=== PATIENT | male | born 1960 | race Caucasian/White ===

== ENCOUNTER 2016-06-04 11:25 | Inpatient (IN) ==
[2016-06-04 11:56] LABS: URINE CULTURE NEEDED? NO; URINE MICRO REVIEW NEEDED? NO; URINE SOURCE CLEAN CATCH
[2016-06-04 12:03] LABS: BILIRUBIN URINE NEGATIVE (NEGATIVE); BLOOD URINE NEGATIVE (NEGATIVE); COLOR YELLOW; GLUCOSE URINE NEGATIVE (NEGATIVE); LEUKOCYTES URINE NEGATIVE (NEGATIVE); NITRITE URINE NEGATIVE (NEGATIVE); PH URINE 5.5; PROTEIN URINE NEGATIVE (NEGATIVE); SP GRAVITY URINE 1.021; TURBIDITY URINE CLEAR (CLEAR); UR EPITHELIAL CELLS <10 /HPF (<10); URINE BACTERIA NEGATIVE /HPF; URINE RBC <10 /HPF (<10); URINE WBC <10 /HPF (<10); UROBILINOGEN URINE 2 mg/dL (NORMAL)
[2016-06-04 14:19] LABS: BASO% 2.9 % (0.0-0.8); EOS# 0.41 X1000 (0.0-0.7); EOS% 3.9 % (0.0-10.0); HEMATOCRIT 37.2 % (42.0-52.0); HEMOGLOBIN 13.6 g/dL (14.0-18.0); IMM GRAN# 0.08 X1000 (0.0-0.04); IMM GRAN% 0.8 % (0.0-0.5); LYMPH# 3.11 X1000 (1.2-3.4); LYMPH% 29.6 % (20.5-51.1); MANUAL DIFF NEEDED? NO; MCH 30.5 PG (27-31); MCHC 36.6 g/dL (33-37); MCV 83.4 FL (81-99); MONO# 1.75 X1000 (0.11-0.59); MONO% 16.6 % (1.7-9.3); NEUT% 46.2 % (42.2-75.2); PLT 184 X1000 (130-400); RBC 4.46 XMIL (4.7-6.1)
[2016-06-04 14:50] LABS: AGAP 14; ALBUMIN 3.3 g/dL (3.5-5.0); ALKALINE PHOSPHATASE 132 U/L (32-122); BUN 19 mg/dL (8-22); CALCIUM 9.1 mg/dL (8.8-10.2); CHLORIDE 98 mmol/L (98-107); COSMO 270; GOT 29 U/L (10-34); GPT 29 U/L (10-44); POTASSIUM 4.7 mmol/L (3.5-5.1); RA TEST > 650 IU/mL (0-14); SODIUM 134 mmol/L (136-145); TCO2 22 mmol/L (25-35); TOTAL BILIRUBIN 0.86 mg/dL (0.20-1.00); TOTAL PROTEIN 7.1 g/dL (6.3-8.3)
[2016-06-04 15:35] LABS: URINE CULTURE NEEDED? NO; URINE MICRO REVIEW NEEDED? NO; URINE SOURCE CLEAN CATCH
--- NOTE | 2016-06-04 15:43 | PROVIDER DOCUMENTATION ---
This chart was entered by Adrian Harris Scribe, acting as scribe for Andrea Monreal MD. HPI-General Adult - General Chief Complaint: General Adult Stated Complaint: EXT PAIN Time Seen by Provider: 06/04/16 13:11 Source: patient Allergies/Adverse Reactions: Patient Allergies Allergy/AdvReac Type Severity Reaction Status Date / Time No Known Allergies Allergy Verified 06/04/16 12:58 Home Medications: Home Medication List Medication Instructions Recorded Confirmed Last Taken Type Albuterol Sulfate [Ventolin Hfa] 18 gm IH Q6H PRN PRN 09/15/15 06/04/16 History Fluticasone/Vilanterol [Breo 2 puff INH HS 12/18/15 06/04/16 06/03/16 20:00 History Ellipta 100-25 Mcg INH] - History of Present Illness -Gen Adult Nature of Presenting Problems: patient is a 55 yo M that presents to the ER with joint pain swelling and muscle aches, unknown start of symptoms. Denies fever/chills. shortness of breath. This am patient had some confusion per family and urinary retention and frequency. No abdominal pain, n/v/d. Location of Pain/Injury: reports: back, upper body, lower body Pain Radiation: reports: no radiation Quality of Pain: reports: aching, dull Timing: reports: still present, constant Context/Activities at Onset: reports: none Modifying Factors: improves with: nothing Associated Symptoms: reports: back/neck pain, genitourinary problems, joint pain , muscle aches, other (confusion). denies: cough, diarrhea, EENT symptoms, fever/chills, nausea, shortness of breath, vomiting Similar Symptoms Previously?: No Recently seen or treated by another doctor?: No Review of Systems - Adult - REVIEW OF SYSTEMS - ADULT Constitutional: denies: chills, fever Eyes: denies: decreased vision, blurred vision, double vision Ears, Nose, Mouth & Throat: denies: ear pain, sinus problem, throat pain, throat swelling Cardiovascular: denies: chest pain, palpitations, syncope Respiratory: denies: cough, shortness of breath, wheezing Gastrointestinal: denies: abdominal pain, nausea, vomiting Genitourinary: reports: frequency. denies: dysuria, hematuria Musculoskeletal: reports: back pain, joint pain, neck pain Integumentary: reports: no symptoms reported Neurological: reports: other (confusion). denies: dizziness/vertigo, headache/ migraines, loss of balance, syncope Psychiatric: reports: no symptoms reported Endocrine: reports: no symptoms reported Hematologic/Lymphatic: reports: no symptoms reported Allergic/Immunologic: reports: no symptoms reported All Other Systems: Reviewed and Negative Past History - Adult - PAST MEDICAL HISTORY-ADULT Review of Records: reports: Old Records Reviewed, Nursing Assessment Review, Medications Reviewed Respiratory: reports: COPD - PRIOR SURGERIES/PROCEDURES Surgical/Procedure History: reports: tonsillectomy, other (spleenectomy) - IMMUNIZATION STATUS Childhood Immunizations: See Nurse Assessment Flu Vaccine: See Nurse Assessment - FAMILY HISTORY Family History: other (lupus) - SOCIAL HISTORY Smoking: cigarettes, less than 1 pack/day Alcohol Use Frequency: every day Number of drinks per typical drinking period:: 3-4 drinks Living Situation: family Physical Exam-General - PHYSICAL EXAM-ADULT Initial Vital Signs Reviewed: Yes - CONSTITUTIONAL General Appearance: alert, no apparent distress - EYES Eyes: PERRL/EOMI, pink conjunctivae - HEAD, EARS, NOSE, MOUTH & THROAT HENMT: normocephalic/atraumatic, moist mucous membranes, normal ENT inspection - NECK Neck: full range of motion, normal inspection - RESPIRATORY Respiratory: lungs clear, normal breath sounds, no respiratory distress, no accessory muscle use - CARDIOVASCULAR Cardiovascular: regular rate, rhythm, no edema, no murmur - GASTROINTESTINAL (ABDOMEN) Abdominal Exam: normal bowel sounds, non tender, soft - MUSCULOSKELETAL Extremity: no calf tenderness, normal capillary refill, pelvis stable, swelling (to bilateral hands(knuckles)), tenderness (bilateral feet) - SKIN Integumentary: normal color, warm/dry - NEUROLOGIC Neurologic: grossly normal, no motor/sensory deficits - PSYCHIATRIC Psych/Mental Status: normal mood/affect, normal thought content, normal thought process, oriented x 3 Progress - PLAN OF CARE/RESULTS Progress/Plan/Lab Results: Vital Signs - 8 hr 06/04/16 11:30 06/04/16 13:24 Temperature 97.3 F L Pulse Rate 96 H 84 Respiratory Rate 18 21 Blood Pressure 126/65 109/72 O2 Sat by Pulse Oximetry 99 94 L Laboratory Results - last 24 hr 06/04/16 11:45 Urine Source CLEAN CATCH Urine Color YELLOW Urine Turbidity CLEAR Urine pH 5.5 Ur Specific [place] 1.021 Urine Protein NEGATIVE Ur Glucose (Stick) NEGATIVE Ur Ketones (Stick) 20 A Urine Blood NEGATIVE Urine Nitrite NEGATIVE Urine Bilirubin NEGATIVE Urobilinogen Dipstick 2 A Urine Leukocytes NEGATIVE Urine WBC (Auto) <10 Urine RBC (Auto) <10 U Epithel Cells (Auto) <10 Urine Bacteria (Auto) NEGATIVE Orders Category Date Time Status CBC WITH ELECTRONIC DIFF [HEME] Stat Lab 06/04/16 12:44 Uncollected CMP [COMPREHENSIVE METABOLIC PANEL] [CHEM] Stat Lab 06/04/16 12:44 Uncollected UA NIMS W/REFLEX CULT [URINALYSIS] Stat Lab 06/04/16 11:45 Completed Orders Category Date Time Status HEAD W/O CONTRAST [CT] Stat Exams 06/04/16 13:31 Taken MRI BRAIN W/CONTRAST [MRI] Stat Exams 06/04/16 15:38 Ordered WALTER W/REFLEX [HH] Stat Lab 06/04/16 13:57 Received CBC WITH ELECTRONIC DIFF [HEME] Stat Lab 06/04/16 13:57 Completed CMP [COMPREHENSIVE METABOLIC PANEL] [CHEM] Stat Lab 06/04/16 13:57 Completed LUPUS INHIBITOR [HH] Stat Lab 06/04/16 13:57 Received RA TEST [CHEM] Stat Lab 06/04/16 13:57 Completed UA NIMS W/REFLEX CULT [URINALYSIS] Stat Lab 06/04/16 11:45 Completed UA NIMS W/REFLEX CULT [URINALYSIS] Stat Lab 06/04/16 14:10 Results Vital Signs Temp Pulse Resp BP Pulse Ox 06/04/16 13:24 84 21 109/72 94 L 06/04/16 11:30 97.3 F L 96 H 18 126/65 99 No Known Allergies Allergy (Verified 06/04/16 12:58) Albuterol Sulfate [Ventolin Hfa] 18 gm IH Q6H PRN PRN 09/15/15 Fluticasone/Vilanterol [Breo Ellipta 100-25 Mcg INH] 2 puff INH HS 12/18/15 I&O 06/03/16 06/04/16 06/05/16 06:59 06:59 06:59 Output Total Balance - Laboratory 06/04/16 06/04/16 06/04/16 14:10 13:57 13:57 WBC 10.52 RBC 4.46 L Hgb 13.6 L Hct 37.2 L MCV 83.4 MCH 30.5 MCHC 36.6 RDW Std Deviation 20.4 H Plt Count 184 MPV Not Reportable Immature Gran % (Auto) 0.8 H Neut % (Auto) 46.2 Lymph % (Auto) 29.6 [place] % (Auto) 16.6 H Eos % (Auto) 3.9 Baso % (Auto) 2.9 H Immature Gran # (Auto) 0.08 H Neut # (Auto) 4.86 Lymph # (Auto) 3.11 [place] # (Auto) 1.75 H Eos # (Auto) 0.41 Baso # (Auto) 0.31 H Sodium 134 L Potassium 4.7 Chloride 98 Carbon Dioxide 22 L Anion Gap 14 BUN 19 Creatinine 0.7 Estimated GFR/1.73 m2 > 60 BUN/Creatinine Ratio 27 Glucose 87 Calculated Osmolality 270 Calcium 9.1 Total Bilirubin 0.86 AST 29 ALT 29 Alkaline Phosphatase 132 H Total Protein 7.1 Albumin 3.3 L Globulin 3.8 Albumin/Globulin Ratio 0.9 Urine Source CLEAN CATCH Urine Color Urine Turbidity Urine pH Ur Specific [place] Urine Protein Ur Glucose (Stick) Ur Ketones (Stick) Urine Blood Urine Nitrite Urine Bilirubin Urobilinogen Dipstick Urine Leukocytes Urine WBC (Auto) Urine RBC (Auto) U Epithel Cells (Auto) Urine Bacteria (Auto) Rheum Factor Semi-Quant > 650 H 06/04/16 11:45 WBC RBC Hgb Hct MCV MCH MCHC RDW Std Deviation Plt Count MPV Immature Gran % (Auto) Neut % (Auto) Lymph % (Auto) [place] % (Auto) Eos % (Auto) Baso % (Auto) Immature Gran # (Auto) Neut # (Auto) Lymph # (Auto) [place] # (Auto) Eos # (Auto) Baso # (Auto) Sodium Potassium Chloride Carbon Dioxide Anion Gap BUN Creatinine Estimated GFR/1.73 m2 BUN/Creatinine Ratio Glucose Calculated Osmolality Calcium Total Bilirubin AST ALT Alkaline Phosphatase Total Protein Albumin Globulin Albumin/Globulin Ratio Urine Source CLEAN CATCH Urine Color YELLOW Urine Turbidity CLEAR Urine pH 5.5 Ur Specific [place] 1.021 Urine Protein NEGATIVE Ur Glucose (Stick) NEGATIVE Ur Ketones (Stick) 20 A Urine Blood NEGATIVE Urine Nitrite NEGATIVE Urine Bilirubin NEGATIVE Urobilinogen Dipstick 2 A Urine Leukocytes NEGATIVE Urine WBC (Auto) <10 Urine RBC (Auto) <10 U Epithel Cells (Auto) <10 Urine Bacteria (Auto) NEGATIVE Rheum Factor Semi-Quant Result Diagrams: 06/04/16 13:57 06/04/16 13:57 - CT/MRI 1 CT Study: Head Impression: Abnormal CT Results: many hypodense areas, spoke with - CONSULTS/PCP/HOSPITALIST Notification #1 *Consult/PCP/Hospitalist*: Time Discussed: 15:36 Consult Disposition: Will see in ED, Admit Departure - Departure Time of Disposition Decision: 15:37 DIAGNOSIS: Rheumatoid arthritis Qualifiers: Rheumatoid arthritis location: multiple sites Rheumatoid factor presence: without rheumatoid factor Qualified Code(s): M06.09 - Rheumatoid arthritis without rheumatoid factor, multiple sites Altered mental status Qualifiers: Altered mental status type: unspecified Qualified Code(s): R41.82 - Altered mental status, unspecified Disposition: ADMITTED INPATIENT 09 Certified Medical Emergency: Emergent Condition: Stable Referrals and Follow-Ups: None,PCP [Primary Care Provider] - This chart was documented by the indicated scribe, (Adrian Harris, Scribe) and accurately reflects the services I performed and decisions made by me, Andrea Monreal MD, as attested by the provider's signature.
[2016-06-04 15:45] LABS: BILIRUBIN URINE NEGATIVE (NEGATIVE); BLOOD URINE NEGATIVE (NEGATIVE); COLOR YELLOW; GLUCOSE URINE NEGATIVE (NEGATIVE); LEUKOCYTES URINE NEGATIVE (NEGATIVE); NITRITE URINE NEGATIVE (NEGATIVE); PH URINE 5.5; PROTEIN URINE NEGATIVE (NEGATIVE); SP GRAVITY URINE 1.023; TURBIDITY URINE CLEAR (CLEAR); UROBILINOGEN URINE 2 mg/dL (NORMAL)
[2016-06-04 15:48] LABS: UR EPITHELIAL CELLS <10 /HPF (<10); URINE BACTERIA NEGATIVE /HPF; URINE WBC <10 /HPF (<10)
--- NOTE | 2016-06-04 16:52 | Diag Imaging Result Document ---
PROCEDURE NAME: MRI BRAIN W W/O CONTRAST - 06/04/2016 MRI BRAIN WITH AND WITHOUT: TECHNIQUE: Axial, sagittal, and coronal images were obtained in multiple sequences. These were followed by postcontrast axial and coronal images. COMPARISON: Comparison is made to a recent CT. FINDINGS: There are multiple scattered areas of increased signal on the diffusion weighted images. However, these are much smaller than the areas of abnormal signal on the T2 and FLAIR weighted images. There are multiple bilateral asymmetric areas of increased signal on the FLAIR and T2 weighted images. No enhancing lesion on the postcontrast images. No distinct mass. No hydrocephalus. No epidural or subdural fluid collection. There is mucous in the frontal ethmoid, sphenoid, and maxillary sinuses. IMPRESSION: Bilateral multifocal areas of abnormal signal suspicious for diffuse disseminated encephalomyelitis although emboli could give a somewhat similar appearance. A preliminary report was given at 4:38 p.m..
--- NOTE | 2016-06-04 17:10 | Diag Imaging Result Document ---
PROCEDURE NAME: HEAD W/O CONTRAST - 06/04/2016 CT BRAIN WITHOUT: FINDINGS: Dose reduction protocol. No parenchymal hemorrhage. No epidural or subdural hematoma. No subarachnoid hemorrhage. Multifocal hypodense areas. No midline shift. No hydrocephalus. There is moderate to prominent mucous in the frontal, ethmoid, and sphenoid sinuses. IMPRESSION: 1. No hemorrhage. 2. Multifocal hypodense areas. There could be underlying masses. Additional imaging recommended. 3. Sinusitis. A preliminary report was called to Dr. Monreal in the emergency room at 3:16 PM.
[2016-06-04] MEDS ORDERED: VENTOLIN HFA INH PRN (17:53)
[2016-06-04] MEDS ORDERED: NS 1,000 ML IV ONE (17:53)
[2016-06-04] MEDS ORDERED: TYLENOL PO PRN (23:17)
[2016-06-04] MEDS ORDERED: ZOFRAN IV PRN (23:17)
[2016-06-04] MEDS ORDERED: SOLU-MEDROL IV ONE (23:28)
--- NOTE | 2016-06-05 03:27 | HISTORY AND PHYSICAL ---
CHIEF COMPLAINT: Confusion. HISTORY OF PRESENT ILLNESS: This is a 55-year-old, white male with a history of COPD who presents with intermittent episodes of confusion for the last 3-4 days. His also states he has had significant pain and swelling in his multiple joints, hands, left shoulder for the last 2-3 weeks. He has had some urinary retention and frequency. Denies abdominal pain. No nausea, vomiting, or diarrhea. The swelling in his joints, at least his hand joints, has been going on for about two years. He does not really state he has morning stiffness but he has weakness and stiffness in the last several days. Patient was evaluated in the ER, felt to have rheumatoid arthritis, and was admitted for further evaluation. A CT of the head had multiple abnormalities. MRI showed multiple areas of hypodensity which may be stroke, embolic, of unknown age versus encephalomeningitis. The patient also admitted for further workup. PAST MEDICAL HISTORY: COPD, otherwise negative. PAST SURGICAL HISTORY: Negative. FAMILY HISTORY: Reviewed. Mother had lupus. SOCIAL HISTORY: Half a pack a day. No ethanol. ALLERGIES: No known drug allergies. MEDICATIONS: Albuterol. REVIEW OF SYSTEMS: All systems are reviewed and negative. He does report weight loss, although less than 5-10 pounds. PHYSICAL EXAMINATION: VITAL SIGNS: Blood pressure is 115/66, heart rate 86, respiratory rate 18, temperature 98 degrees. GENERAL: Well-developed male, in no acute distress. HEAD EXAMINATION: Normocephalic, atraumatic. EYES: Pupils equal, round, reactive to light. Extraocular movements were intact. EARS/NOSE/THROAT: Moist mucous membranes. NECK: Supple. No thyromegaly. PULMONARY: Bilateral breath sounds clear to auscultation. No wheezing. GI: Soft, nontender, nondistended. Bowel sounds are positive. EXTREMITIES: No clubbing or cyanosis. No lymphadenopathic edema. NEUROLOGIC: Examination was nonfocal. Cranial nerves 2-12 were intact. MUSCULOSKELETAL: There was 4/5 on all 4 extremities. He had some pain in his left arm which limited his pronator examination. LABORATORY DATA: Unremarkable except for rheumatoid factor test of greater than 650. His head CT showed multiple areas of encephalomeningitis. PROBLEM LIST: 1. Rheumatoid arthritis. We will dose with steroids and follow. We will continue with other treatments and follow clinically. 2. Abnormal head CT, MRI. Questionable lesions could be a chronic inflammatory condition versus true ischemic disease. We will work up cerebrovascular disease with echocardiogram and carotid Doppler. I am going to get neurology consultation. We will continue to follow clinically. There is a concern over vasculitis. Follow clinically. 3. Chronic obstructive pulmonary disease appears to be complicated. We will continue to follow clinically. cc: Luis Enrique Caldwell MD
[2016-06-05 07:07] LABS: HEMATOCRIT 38.8 % (42.0-52.0); HEMOGLOBIN 13.9 g/dL (14.0-18.0); MCH 30.6 PG (27-31); MCHC 35.8 g/dL (33-37); MCV 85.5 FL (81-99); PLT 142 X1000 (130-400); RBC 4.54 XMIL (4.7-6.1)
--- NOTE | 2016-06-05 07:56 | Diag Imaging Result Document ---
PROCEDURE NAME: CT THORAX W/CONTRAST - 06/05/2016 CT OF THE CHEST WITH INTRAVENOUS CONTRAST: FINDINGS: There is apical pleural fibrosis bilaterally. There are some calcified and noncalcified pulmonary nodules in the upper lobes. There is mild emphysematous change. There is a pleural-based nodule in the right middle lobe which is fairly dense having a CT density of over 70 Hounsfield units. This is probably granulomatous. There are 2 pleural-based nodules in the right lower lobe on image 115 which are fairly dense as well without grossly evident calcification. The larger of the 2 has a diameter of [address] density of over 86 Hounsfield units. On image 113 in the left lower lobe, there is a pleural based nodule measuring almost 10 mm in diameter which is also fairly dense over 76 Hounsfield units. Multiple smaller peripheral nodules are present in both lower lobes which are too small to characterize. There is some fibrosis or atelectasis present in the right costophrenic sulcus posteriorly. Compared to the previous study of 09/15/2015, the pulmonary nodules and right lower lobe fibrotic changes have not changed significantly. 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 There are splenules in the left upper quadrant, the larger of which on image 119 is larger than it was on 09/15/2015. There is questionable thickening of the distal esophagus. There are stable mediastinal and hilar nodes. There are fairly prominent bilateral axillary nodes, one on the right measuring 17 mm in diameter and one on the left measuring 15 mm, both of which have not changed significantly in size since the previous study. The regional skeleton is stable in appearance. The aorta is without evidence of dissection. There is no evidence of aneurysm. There are some coronary calcifications in the left anterior descending and circumflex arteries. IMPRESSION: No evidence of acute pulmonary disease. Apparent granulomatous changes.
[2016-06-05 09:48] LABS: AGAP 15; ALBUMIN 3.3 g/dL (3.5-5.0); ALKALINE PHOSPHATASE 142 U/L (32-122); BUN 14 mg/dL (8-22); CALCIUM 9.3 mg/dL (8.8-10.2); CHLORIDE 99 mmol/L (98-107); COSMO 277; GOT 25 U/L (10-34); GPT 30 U/L (10-44); POTASSIUM 4.4 mmol/L (3.5-5.1); SODIUM 137 mmol/L (136-145); TCO2 23 mmol/L (25-35); TOTAL BILIRUBIN 0.75 mg/dL (0.20-1.00); TOTAL PROTEIN 7.2 g/dL (6.3-8.3)
[2016-06-05] MEDS ORDERED: SUDAFED PO PRN (11:22)
[2016-06-05] MEDS: CLARITIN PO SCH (11:42)
--- NOTE | 2016-06-05 14:47 | PROGRESS NOTE ---
DATE: 06/05/2016 SUBJECTIVE: The patient has no focal complaints. He looks much more awake and alert today. No major issues. He is still fairly weak, but we are going to see how he does kind of getting up and around. OBJECTIVE: Vital Signs: Blood pressure 111/61, heart rate 92, respiratory rate 18, temperature 97.9 degrees, 97% on room air. Cardiovascular: Regular rate and rhythm. Pulmonary: Bilateral breath sounds. Clear to auscultation. Gastrointestinal: Soft, nontender, nondistended. Bowel sounds are positive. Neurologic: Unremarkable, except for weakness in his left arm. PROBLEM LIST: 1. Likely rheumatoid arthritis. I am going to continue prednisone and we will put him on some anti-inflammatory medication and follow. He may, indeed, need methotrexate. I am still waiting on the rest of his laboratory work. Echocardiogram and carotid are still pending. 2. 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 I am going to wait on neural recommendations. We will continue to follow. Clinically, he looks well. Anticipate discharge soon, either later today or tomorrow. cc: Luis Enrique Caldwell MD
--- NOTE | 2016-06-05 14:55 | CONSULTATION ---
DATE OF CONSULTATION: 06/05/2016 Mr. Perkins is 55 years old and he has had recent mental changes with MRI evidence of multifocal bilateral small diffusion-weighted signals raising question of encephalitis. Other lab work included CBC showing anemia. Sodium 134. RF factor is very strongly positive. Noncontrast CT of the head showed multifocal hypodense areas. Systolic blood pressures have been 100 to 170s. He has been afebrile. History from patient and is that he has not felt well for the last few weeks. He was in the hospital twice in the last 6 or 8 months with COPD exacerbation but there was no confusion or mental change then. He had some shortness of breath, weight loss, malaise. noticed that he had trouble finding words at times as long as a week and a half ago. She noticed that he would sometimes pause in the middle of a sentence and not complete his sentence. Sometimes he would communicate very well and sometimes he had great difficulty. She did not recognize definite altered awareness. There was no altered consciousness or collapse. He noticed some numbness in the left foot in the last several days. Otherwise, there has not been any focal neurologic feature to his recent problems. He uses ethanol regularly, 1 or 2 beers most days recently, more than that in previous months. He denies illicit drug use. He takes his breathing medicines regularly. He does not have any other home medicines. He continues to smoke cigarettes. On exam, Mr. Perkins is awake, alert, attentive, appropriate. He is oriented to everything except the correct day of the month. He was able to discuss recent news with accurate detail. Speech is not dysarthric. He had some trouble naming parts of objects and he had trouble maintaining his attention with complicated commands. He scored 26/30 on bedside mini-mental status exam. He consistently registered 2 of 3 items but never registered 3 of 3. He then could recall 2 of 3 items but often a different 2 than what he had initially registered. He could not identify the correct day of the month. He had some trouble with naming parts of objects. He was completely oriented otherwise. He spelled world backward correctly on the 3rd try. He seemed to be distracted and had trouble maintaining attention. Head and neck are unremarkable. Visual marie are full tested grossly by confrontational finger counting. Extraocular movements are full. Facial motility is symmetric. Facial sensation is intact. Gag is intact. Tongue is midline. He can hear. Shoulder shrug is equal. Strength is normal in the arms and legs. He did well on [id number] testing bilaterally. He reports diminished pinprick appreciation over the dorsum of the left foot, mostly medial aspect without sharp margins. He had better proprioception at the right great toe MTP joint than on the left. He has good pinprick appreciation over the hands bilaterally and good proprioception in the fingers bilaterally. I did not test his gait. Reflexes are 2+ at the wrists, 2+ at knees, 2+ at the right ankle and 1+ at the left ankle. Plantar response is silent bilaterally. IMPRESSION: 1. Episodes of difficulty with communication, some fluctuation, uncertain as to whether this is dysphasia, inattention or cognitive impairment. His performance on bedside testing is more typical of inattention than major cognitive impairment. 2. Clinical finding of likely peripheral neuropathy at the left foot but some inconsistencies on exam. I do not think this is a major concern right now. We can look into this problem later if it persists. This may be peripheral neuropathy associated with vasculitis. 3. MRI evidence of multifocal bilateral diffusion-weighted signal raising question of scattered ischemic change. This could be cardioembolic, but more worrisome would be central nervous system vasculitis. 4. My impression is that he seems improved mentally now compared to the way he presented recently. I hope this is beginning of steady recovery mentally. We can continue steroids and follow clinically. I will order EEG to make sure he is not having seizures to account for the fluctuating mental status. Thanks for asking me to see Mr. Perkins. cc: MD ADDIS Dodson III
[2016-06-05] MEDS: MOBIC PO SCH (15:34)
[2016-06-05] MEDS: PREDNISONE PO SCH (15:35)
[2016-06-06 05:56] LABS: HEMATOCRIT 32.5 % (42.0-52.0); HEMOGLOBIN 11.7 g/dL (14.0-18.0); MCH 30.4 PG (27-31); MCV 84.4 FL (81-99); MPV 12.6 FL (7.4-10.4); RBC 3.85 XMIL (4.7-6.1)
[2016-06-06 06:10] LABS: AGAP 13; BUN 19 mg/dL (8-22); CALCIUM 9.1 mg/dL (8.8-10.2); CHLORIDE 102 mmol/L (98-107); COSMO 279; POTASSIUM 4.1 mmol/L (3.5-5.1); SODIUM 138 mmol/L (136-145); TCO2 23 mmol/L (25-35)
[2016-06-06 07:45] VITALS: BP 98/62
--- NOTE | 2016-06-06 08:09 | PROGRESS NOTE ---
DATE: 06/06/2016 Mr. Perkins it is awake, alert, attentive. He seems brighter today. He is a little bit quicker to answer questions regarding orientation. He does not have meningismus. I did not test his gait but reports gait is improved this morning. He will have EEG this morning as planned. I do not have any new suggestions today. Thanks for asking me to see Mr. Perkins. cc: Kailyn Herndon III, MD
[2016-06-06] MEDS: PREDNISONE PO SCH (09:12)
[2016-06-06] MEDS: CLARITIN PO SCH (09:12)
[2016-06-06] MEDS: MOBIC PO SCH (09:12)
--- NOTE | 2016-06-06 11:03 | EEG REPORT ---
DATE: 06/06/2016 PROCEDURE: Electroencephalogram. DATE OF PROCEDURE: 06/06/2016. EEG #: [id number]. COMMENT: This is a digitally recorded EEG on a 55-year-old patient with MRI evidence of scattered ischemic changes, fluctuating level of alertness, question of seizure. FINDINGS: During waking, medium and higher amplitude 9 Hz posterior rhythm is present bilaterally and reacts at times to eye opening. Background contains abundant polymorphic and rhythmic theta frequencies diffusely across the hemispheres with some slowing into the delta range at high amplitude frontally bilaterally. Delta is sometimes more prominent on the right than the left. Photic stimulation produced some symmetric entrainment. Drowsing occurred with appearance of more generalized slowing. Stage II sleep was not recorded. INTERPRETATION: Abnormal EEG because of generalized slowing and sometimes more prominent slowing over the right hemisphere. CORRELATION: The generalized slowing is more prominent than the focal features and this EEG is indicative of a diffuse encephelopathy. The absence of epileptiform discharges on a single EEG does not exclude a clinical diagnosis of seizures, but there is nothing on this record to prove the presence of seizures. cc: Kailyn Herndon III, MD MTDD
--- NOTE | 2016-06-06 14:36 | ECHO REPORT ---
ORDER DATE: 06/05/2016 INTERPRETING PHYSICIAN: Dr. Tay Moore ECHOCARDIOGRAPHIC MEASUREMENTS: Interventricular septum: 0.8 cm. Left ventricular posterior wall: 0.9 cm. Left ventricle: 5.4 cm. Left atrium: 3.2 cm. Aortic root: 3.3 cm. SUMMARY OF THE 2-DIMENSIONAL IMAGIN. Normal left ventricular cavity size. Estimated ejection fraction of 55%. There is inferior wall hypokinesis. 2. Aortic valve leaflets are trileaflet. Mitral valve was normal. Tricuspid valve was normal. Pulmonic valve was normal. 3. Peak velocity across the aortic valve less than 2 m/sec by Doppler studies. There is no aortic stenosis or regurgitation. 4. There is trace mitral regurgitation. Mild tricuspid regurgitation. Peak velocity across the tricuspid valve was 2.2 m/sec. There is mild pulmonary regurgitation. 5. There is no obvious pericardial effusion or obvious intracardiac mass or thrombus seen. cc: MD Luis Enrique Mercedes MD
--- NOTE | 2016-06-06 15:50 | DISCHARGE SUMMARY ---
ADMISSION DATE: 06/04/2016 DISCHARGE DATE: DISCHARGE DIAGNOSES: 1. Rheumatoid arthritis. 2. Vasculitis with central nervous system changes. Briefly this is a 55-year-old male who came in for evaluation due to confusion and weakness. He was seen on the 10. Workup in the ER revealed an abnormal head CT but he clearly had changes consistent with rheumatoid. We will continue prednisone and anti-inflammatory medications. Clinically he improved. I consulted Neurology. We pursued an MRI which felt that he had several lesions with concern over a diffuse disseminated encephalomyelitis although embolic disease could be there. Dr. Herndon evaluated patient and felt he likely had an autoimmune issue versus true stroke type issues. Again workup was really unremarkable. His sedimentation rate was normal. CRP was only mildly elevated. His RF factor was greater than 605. Neurological exam was really unremarkable. There was concern again more about vasculitis and other primary process. Chest CT was negative for any acute airspace disease. Carotid Doppler and echo are pending but I think were grossly normal. He continued to steadily improve on steroids and anti-inflammatory medications, cyclic citrullinated peptide anti level was pending. I have also ordered a CT angiogram but clinically I think he is okay to go home. I have discussed the case with Dr. Alan. We will initiate followup and evaluate, establish final diagnosis and definitive treatment for his rheumatoid immune modulators. DISCHARGE MEDICINES: Ventolin, Breo, Mobic 15 daily, prednisone taper over a month. DISCHARGE CONDITION: Stable. TIME SPENT: 32 minute discharge. cc: MD Marina Martinez MD
--- NOTE | 2016-06-06 15:57 | Diag Imaging Result Document ---
PROCEDURE NAME: ANGIOGRAM/HEAD - 06/06/2016 CT ANGIOGRAM OF THE HEAD WITH INTRAVENOUS CONTRAST: A CT dose reduction protocol was used. COMPARISON: 06/04/2016. FINDINGS: The intracranial arterial structures are all normal. There is no evidence of aneurysm, stenosis, or dissection. This is true even in the areas of abnormality on the MRI and CT. No evidence of intracranial mass or hemorrhage. There is bilateral sinusitis. This is similar to the prior CT. IMPRESSION: No vascular abnormality. No change from prior exams. The differential diagnosis includes embolic phenomenon, demyelinating disease, or encephalitis due to toxic , metabolic, or seizure reasons. MTDD
--- NOTE | 2016-06-08 12:03 | Carotid Study ---
DATE: 06/05/2016 PROCEDURE: Carotid duplex imaging. REFERRING PHYSICIAN: Luis Enrique Caldwell MD INTERPRETING PHYSICIAN: Luis Sanchez MD TECH: [place] INDICATIONS: The patient has had a TIA. OBSERVED DATA RIGHT LEFT Brachial Blood Pressure Carotid Pulse Bruits: Carotid/Sub DIAGRAM OF ULTRASOUND IMAGING R L RIGHT INT EXT INT EXT LEFT Santos (cm/s) Santos (cm/s) Subclavian 170/0 Subclavian 149/0 CCA Proximal 137/30 CCA Proximal 128/30 CCA Distal 103/26 CCA Distal 90/21 Bulb 94/26 Bulb 89/24 ICA Proximal 84/26 ICA Proximal 77/20 ICA Mid 81/30 ICA Mid 93/31 ICA Distal 78/26 ICA Distal 75/23 ECA 101/16 ECA 142/29 Vertebral 32/8 A Vertebral 48/18 A ICA/CCA Ratio 0.6 ICA/CCA Ratio 0.7 % Stenosis 0%-39% % Stenosis 0%-39% PHYSICIAN INTERPRETATION: Minimal plaque noted in the bulbs on both sides. Neither side produces a stenosis of any significant consequence. There is antegrade vertebral flow bilaterally. cc: MD Luis Enrique Alex MD
== END 2016-06-06 16:07 | disposition home or self-care (01) ==
LOC: ED 11:25 → SUATTDRO 17:38 → 4N 17:38
PROVIDERS: ATTEND Internal Medicine